=== PATIENT | male | born 1940 | race Caucasian/White ===

== ENCOUNTER 2017-10-22 07:58 | Inpatient (IN) | payer OTHER ==
--- NOTE | 2017-10-21 12:43 | GHP ---
[f rep st] PREOP HISTORY AND PHYSICAL Patient will be an a.m. admission for surgery on Sunday, october 22, 2017. PROBLEM: Left knee degenerative arthritis. HISTORY OF PRESENT ILLNESS: The patient is a 77-year-old man, admitted for a left total knee arthroplasty. He has had progressive pain in his left knee for the last couple of years. The knee is painful with walking. He has had at least one cortisone injection in the knee. He thinks he may have had arthroscopic surgery in his left knee on one occasion. He has tried an truck loader and unloader brace, which did not help. He has failed nonsurgical treatment and is admitted for a left total knee arthroplasty. PAST MEDICAL HISTORY: He is treated for hypertension, elevated cholesterol and depression. He has been told that he has a leaky heart valve. No history of coronary artery disease. There is no history of DVT, hepatitis, MRSA infections , or bleeding problems. He has sleep apnea and uses a CPAP machine. CURRENT MEDICATIONS: Amlodipine 5 mg per day, atorvastatin 40 mg per day, bupropion SR 150 mg tablets once a day. Fluticasone nasal spray p.r.n., hydralazine 50 mg per day, losartan 100 mg per day. Metoprolol ER 200 mg 1 tablet per day. ALLERGIES: Aspirin causes extensive swelling and ecchymosis. Metal allergy: None. Latex allergy: None. SOCIAL HISTORY: The patient is . He is retired. He does not smoke cigarettes or drink alcohol. PHYSICAL EXAMINATION: Height 5 feet 9 inches. Weight 220 pounds. BMI 32.5. EYES: Conjunctivae and sclerae are clear. Pupils are round and reactive. MOUTH: Good oral hygiene. No loose teeth. CHEST: Clear. HEART: Regular rhythm. He has a systolic ejection murmur. EXTREMITIES: Pertinent findings are limited to his left knee. He has full extension of 110 degrees of flexion. Significant varus is present. Mild pseudolaxity of his medial collateral ligament. His ligaments are otherwise stable. He is tender along the medial joint line. IMAGING: His films show advanced medial compartment degenerative arthritis. He is odpd-hy-wqjg in the medial compartment. IMPRESSION ON ADMISSION: 1. Left knee degenerative arthritis with varus deformity. He is prepared for a left total knee arthroplasty. 2. Treatment for hypertension. 3. Treatment for elevated cholesterol. 4. Treatment for depression. 5. History of valvular heart disease. PLAN: He will undergo a left total knee arthroplasty. The surgery has been described to him, including the risks, complications, expectations, and recovery time. I have stressed the importance of postoperative physical therapy. I have advised him that 15% of people do not get a satisfactory result with a total knee replacement. All his questions have been answered, and he consents to surgery. Copy requested to: [facility] /[id number]/MODL MTDD
[~2017-10-22 07:58] MED LIST: POVIDONE-IODINE 20 ML in SODIUM CL IRRIG SOLUTION 500 ML IRR ONE; ROPIVACAINE 0.2% 80 MG, EPINEPHrine 0.2 MG in SYRINGE 0 ML IU ONE; TRANEXAMIC ACID 1,000 MG in NS 100 ML IV ONE; VANCOMYCIN 1 GM VIAL ONE; ceFAZolin 1 GM/5 ML SYR ONE
[2017-10-22] MEDS ORDERED: ACETAMINOPHEN 325 MG TAB PO ONE (08:12)
[2017-10-22] MEDS ORDERED: ceFAZolin 2 GM/SWFI 2 GM/20 ML SYR IVP ONE (08:12)
[2017-10-22] MEDS ORDERED: DEXAMETHASONE 4 MG/ML VIAL IVP ONE (08:12)
[2017-10-22] MEDS ORDERED: ONDANSETRON 4 MG/2 ML VIAL IVP ONE (08:12)
[2017-10-22] MEDS ORDERED: GABAPENTIN 300 MG CAP PO ONE (08:12)
[2017-10-22] MEDS ORDERED: FAMOTIDINE 20 MG TAB PO ONE (08:12)
[2017-10-22] MEDS ORDERED: LR 1,000 ML IV ONE (08:13)
[2017-10-22] MEDS ORDERED: LIDOCAINE 1% 2 ML INJ ID PRN (08:13)
--- NOTE | 2017-10-22 09:12 | PDHPUP ---
History & Physical Update H&P update statement: This history and physical update is based on an assessment of the patient which was completed after admission or registration (within 24 hours), but prior to the surgery/procedure. H&P update: H&P reviewed & patient examined
[2017-10-22] MEDS ORDERED: BUPIVACAINE/DEXTROSE 7.5MG/ML 2 ML SPINAL AMP SP ONE (10:05)
[2017-10-22] MEDS ORDERED: PROPOFOL/EMULSION 500 MG/50 ML BOTTLE IV ONE (10:11)
[2017-10-22] MEDS ORDERED: LIDOCAINE 2% 100 MG/5 ML SYR ONE (10:12)
[2017-10-22] MEDS ORDERED: PROPOFOL 200 MG/20 ML VIAL ONE ×2 (11:03→12:07)
--- NOTE | 2017-10-22 11:57 | POSTOPPROG ---
Post Op Note Date of Operation: 10/22/17 Surgeon: Audi Robin Skidder Operator: Andrea Anesthesiologist: Dr. Abner Lai Anesthesia: IV Sedation, Spinal Post-op Diagnosis: Left knee severe degenerative arthritis Procedure: Left total knee arthroplasty Inf/Abcess present in the surg proc area at time of surgery?: No EBL: 50-100 (Adductor canal block in PACU with indwelling catheter.)
[2017-10-22] MEDS ORDERED: PROMETHAZINE HCL 25 MG SUPPR PR PRN (12:20)
[2017-10-22] MEDS ORDERED: diphenhydrAMINE 25 MG CAP PO PRN (12:20)
[2017-10-22] MEDS ORDERED: POLYETHYLENE GLYCOL 3350 17 GM PKT PO PRN (12:20)
[2017-10-22] MEDS ORDERED: NS 500 ML IV PRN (12:20)
[2017-10-22] MEDS ORDERED: BISACODYL 10 MG SUPP PR PRN (12:20)
[2017-10-22] MEDS ORDERED: MAGNESIUM HYDROXIDE 30 ML UDCUP PO PRN (12:20)
[2017-10-22] MEDS ORDERED: ONDANSETRON DISINTEGRATING 4 MG TAB PO PRN (12:20)
[2017-10-22] MEDS ORDERED: ONDANSETRON 4 MG/2 ML VIAL IVP PRN ×2 (12:20→12:34)
[2017-10-22] MEDS ORDERED: PROMETHAZINE HCL 25 MG/ML INJ IVP PRN (12:20)
[2017-10-22] MEDS ORDERED: LACTULOSE 20 GM/30 ML UDCUP PO PRN (12:20)
[2017-10-22] MEDS ORDERED: DIPHENOXYLATE/ATROPINE LOMOTIL 1 TAB PO PRN (12:20)
[2017-10-22] MEDS ORDERED: LR 1,000 ML IV SCH (12:30)
[2017-10-22] MEDS ORDERED: MEPERIDINE 25 MG/0.5 ML AMP IVP PRN (12:34)
[2017-10-22] MEDS ORDERED: ALBUTEROL 3 ML DEYVIAL IH PRN (12:34)
[2017-10-22] MEDS ORDERED: NALOXONE HCL 0.4 MG/ML INJ IVP PRN ×2 (12:34)
[2017-10-22] MEDS ORDERED: fentaNYL 100 MCG/2 ML INJ ONE (12:35)
[2017-10-22] MEDS: fentaNYL 100 MCG/2 ML INJ IVP PRN ×2 (12:36→12:43)
--- NOTE | 2017-10-22 12:36 | POSTANESTH ---
Post Anesthetic Evaluation Cardiovascular Status: Similar to Pre-Op Cond Respiratory Status: Similar to Pre-op Cond. Level of Consciousness/Mental Status: Mildly Sleepy, Arousable Pain Control: Inadeq, Add Tx Required Nausea/Vomiting Control: Adequate, Prn Tx Ordered Complications Possibly Related to Anesthesia: None Noted
--- NOTE | 2017-10-22 12:49 | GOP ---
[f rep st] OPERATIVE REPORT DATE OF OPERATION: 10/22/2017 SURGEON: Audi Robin MD PUBLIC WEIGHER: MOON Anna CFA. ANESTHESIA: Combination of Marcaine spinal, IV sedation, and adductor canal block. PREOPERATIVE DIAGNOSIS: Left knee degenerative arthritis with varus deformity. POSTOPERATIVE DIAGNOSIS: Left knee degenerative arthritis with varus deformity. PROCEDURE PERFORMED: Left total knee arthroplasty, cemented, Brady and Nephew Journey II, posterior stabilized. FINDINGS: DESCRIPTION OF PROCEDURE: The patient was given 2 g of IV Ancef preoperatively within 60 minutes of surgery. He also received IV tranexamic acid at a dose of a 1000 mg IV. He was placed on the operating room table and given spinal anesthesia with Marcaine by Dr. Lai. He was then placed supine and given IV sedation. A Turner catheter was not used. He wore a JUAN FRANCISCO stocking and SCD on the nonoperative leg. A bolster was placed under his left hip to prevent excessive external rotation of the leg. His left lower extremity was prepped with ChloraPrep from the upper thigh tourniquet to the tips of the toes. It was draped free using sterile sheets, stockinette, and Ioban plastic adhesive drape. The lower leg was wrapped with compressive Coban. The leg was exsanguinated with elevation and a 6-inch compressive wrap, and the pneumatic tourniquet was inflated to 275 mmHg. The World Health Organization time-out was performed to verify the correct patient identity and the correct surgical side and site. The Whick time-out was also performed. The OutboundEngineayo leg holding device was sterilely attached to the operating room table and used throughout the procedure to help position the knee. A straight midline incision was made centered on the patella. Subcutaneous tissues were sharply divided, and hemostasis was obtained using electrocautery. A medial subcutaneous flap was developed, and the capsule and synovium were opened in a medial parapatellar fashion. Extensive degenerative changes were present, particularly in the medial compartment. His medial capsule and periosteum were elevated off the rim of the medial tibial plateau all the way around to the posteromedial corner. His medial collateral ligament was released distally. In order to improve exposure, the patella was prepared first. The original thickness of the patella was measured. Peripheral osteophytes were removed. I cut a flat surface on the back of the patella. It was sized for a 38 mm round resurfacing component. I removed enough bone from the patella such that the remaining bone plus the thickness of the patellar component recreated the original thickness of the patella. The composite thickness was 24 mm. The intramedullary alignment guide system was used to set up the distal femoral cut. The distal femur was cut in 5 degrees of valgus. Because of a slight preoperative flexion contracture, I made a +2 mm cut on the distal femur. The sizing jig was used to determine proper femoral sizing. He was a true size 7. The 5 in 1 cutting block was applied, and the anterior and posterior condylar cuts and chamfer cuts were made. The final jig was used to remove the central portion of the distal femur to accommodate the posterior stabilized femoral component. I was careful to determine proper rotation by referencing off Whitesides line and other bony landmarks. Each cut was checked for accuracy before and after it was made. The femur was sized for a size 7 posterior stabilized component. Next, the tibia was prepared. The proximal tibial cut was made using the extramedullary alignment guide system. The cut was made in a few degrees of posterior slope. I was careful to achieve proper varus/valgus alignment and proper rotation. The posterior compartment was cleared of meniscal remnants. Osteophytes were removed from the back of the femoral condyles. I checked the flexion and extension gaps and felt that the flexion gap was a little tighter than the extension gap. I recut the tibia with more posterior slope. The tibia was sized for a size 7 component. With the trial components in place, I selected a 9 mm polyethylene posterior stabilized tibial insert. The knee came to full extension and flexed to 130 degrees. There was no overstuffing in flexion. I thought his medial collateral ligament was still tight and he had 2- 3 mm of lateral laxity in flexion and extension. I went ahead and used an 11 blade to piecrust his medial collateral ligament. I then inserted a 10 mm poly insert. This gave me a proper medial and lateral balance. The trial patellar button was applied, and tracking was checked. Tracking was excellent without any digital pressure. 40 mL of the joint anesthetic cocktail was injected in the posterior capsule, the periarticular structures, the quadriceps muscle and tendon areas, and the subcutaneous tissues along the skin edges. The surfaces were prepared for cementing. They were carefully cleaned with the pulsating lavage irrigation and thoroughly dried. The CarboJet device was used to blow dry the cancellous surfaces. A double batch of methylmethacrylate cement with 2 g of powdered vancomycin added was mixed. While it was still in a doughy state, all [address] components were cemented in place. Excess cement was removed before it hardened. The 10 mm trial tibial insert was re-tried and was the proper thickness. The actual component was inserted and locked into place. The knee was thoroughly irrigated one final time with a dilute Betadine solution. The tourniquet was deflated and the total tourniquet time was 71 minutes. The vastus medialis portion of the extensor mechanism was repaired with several interrupted lyvqah-ya-ulzha #2 FiberWire sutures. The capsule and synovium were closed first with multiple interrupted ppcqtv-mj-cuhrx 0 PDS sutures, followed by a running #2 barbed Ethicon Stratafix PDO suture. The subcutaneous tissues were closed with a running 0 barbed Ethicon Stratafix Monoderm suture. The skin was closed with a running 3-0 barbed Ethicon Stratafix Monoderm subcuticular suture. The skin was sealed with half-inch Steri-Strips. The wound was covered with a large piece of sterile Mepilex waterproof dressing and a 6-inch compressive wrap. A long-leg JUAN FRANCISCO stocking and SCD were applied, followed by the cooling device. The patient wore a stocking and SCD on the opposite leg during the procedure. The Mediplex sacral dressing was applied. I used a size 7 cemented Brady and Nephew Oxinium posterior stabilized femoral component, size 7 cemented tibial base plate, 10 mm posterior stabilized tibial insert, and a 38 mm cemented round all-polyethylene resurfacing patellar component. The estimated blood loss following deflation of the tourniquet was about 100 cc. The sponge and needle count were correct on 2 occasions. He was awakened from anesthesia, transferred to his hospital [facility], and taken to PACU in satisfactory condition. There were no recognized intraoperative complications. In the PACU, for additional postoperative pain control, Dr. Lai performed an adductor canal block with an indwelling catheter. Damian Chen and Luis Antonio Farah acted as surgical assistants. Their assistance was a medical necessity for safe completion of the procedure. /[id number]/MODL MTDD
[2017-10-22] MEDS: ACETAMINOPHEN 325 MG TAB PO SCH (17:09)
[2017-10-22] MEDS: ceFAZolin 2 GM/DEXTROSE 100 ML IV SCH (17:10)
[2017-10-22] MEDS: TEMAZEPAM 15 MG CAP PO PRN (20:43)
[2017-10-22] MEDS: FAMOTIDINE 20 MG TAB PO SCH (20:43)
[2017-10-22] MEDS: SENNOSIDES/DOCUSATE SODIUM TAB PO SCH (20:43)
[2017-10-22] MEDS: buPROPion SR 150 MG TAB PO SCH (20:44)
[2017-10-22] MEDS: oxyCODONE IR 5 MG TAB PO PRN (21:44)
[2017-10-23] MEDS: ACETAMINOPHEN 325 MG TAB PO SCH ×4 (01:52→17:15)
[2017-10-23] MEDS: ceFAZolin 2 GM/DEXTROSE 100 ML IV SCH (01:53)
[2017-10-23] MEDS: oxyCODONE IR 5 MG TAB PO PRN ×5 (02:42→19:36)
[2017-10-23] MEDS: LOSARTAN POTASSIUM 50 MG TAB PO SCH (08:31)
[2017-10-23] MEDS: amLODIPine BESYLATE 5 MG TAB PO SCH (08:31)
[2017-10-23] MEDS: METOPROLOL SUCCINATE XR 100 MG TAB PO SCH (08:32)
[2017-10-23] MEDS: FERROUS SULFATE 140 MG TAB.ER PO SCH (08:32)
[2017-10-23] MEDS: buPROPion SR 150 MG TAB PO SCH ×2 (08:32→21:46)
[2017-10-23] MEDS: SENNOSIDES/DOCUSATE SODIUM TAB PO SCH ×2 (08:32→21:46)
[2017-10-23] MEDS: FAMOTIDINE 20 MG TAB PO SCH ×2 (08:32→21:46)
[2017-10-23] MEDS: ATORVASTATIN CALCIUM 40 MG TAB PO SCH (08:32)
[2017-10-23] MEDS ORDERED: NON-FORMULARY NEW DRUG (Losartan Potassium [Cozaar] 100 MG) PO SCH (09:00)
--- NOTE | 2017-10-23 09:38 | SOAPPROG ---
SOAP Progress Note Assessment/Plan: Assessment: Afebrile. Moderate pain. Up and walking in aguilar. H/H is good. ACB catheter was removed yesterday because of pain. Films look good. Dsg is dry. Plan: Continue PT. Long alignment film. DC later today. 10/23/17 09:37 Objective: Vital Signs Temp Pulse Resp BP Pulse Ox 36.8 C 83 16 142/87 H 93 10/23/17 08:00 10/23/17 08:32 10/23/17 08:00 10/23/17 08:32 10/23/17 08:00 Laboratory Results 10/23/17 04:47 10/22/17 10/23/17 10/24/17 05:59 05:59 05:59 Intake Total 1315 Output Total 165 250 Balance -340 -250 ICD10 Worksheet Patient Problems: Problems Problem Status Onset Osteoarthritis of left knee Acute
--- NOTE | 2017-10-23 09:41 | PDIAF ---
- Diagnosis Diagnosis: left knee OA Code Status: Full Code - Medication Management Discharge Medications: Medications to Continue on Transfer Atorvastatin Calcium [Lipitor 40 mg (*)] 40 mg PO DAILY 02/27/12 [Last Taken ] Losartan Potassium [Cozaar] 100 mg PO DAILY 02/27/12 [Last Taken 10/22/17] Metoprolol Succinate Xr [Toprol Xl 100 mg (*)] 200 mg PO DAILY 02/27/12 [Last Taken 10/22/17] hydrALAZINE [Apresoline 50 mg (*)] 50 mg PO BID 02/27/12 [Last Taken 10/22/17] Acetamn/Diphenhydramine 500/25 [Tylenol PM (*)] 1 each PO HS 10/16/17 [Last Taken 10/21/17] Calcium Carbonate [Oyster Shell Calcium 500 mg (*)] 500 mg PO DAILY 10/16/17 [ Last Taken 10/15/17] Herbals/Supplements -Info Only 1 ea PO DAILY 10/16/17 [Last Taken 10/15/17] Multivitamins [Multivitamin (*)] 1 each PO DAILY 10/16/17 [Last Taken 10/15/17] amLODIPine BESYLATE [Norvasc 5 mg (*)] 5 mg PO DAILY 10/16/17 [Last Taken ] buPROPion SR [Wellbutrin 150mg SR (*)] 150 mg PO BID 10/16/17 [Last Taken ] Acetaminophen [Tylenol 325mg (*)] 650 mg PO Q6HRS tab 10/23/17 [Last Taken Unknown] Ferrous Sulfate [Slow Fe 140 MG (*)] 140 mg PO DAILY tab.er 10/23/17 [Last Taken Unknown] Ondansetron Odt [Zofran Odt 4 mg (*)] 4 mg PO Q4HRS PRN tab 10/23/17 [Last Taken Unknown] Sennosides/Docusate Sodium [Senokot-S] 1 - 2 tab PO BID tab 10/23/17 [Last Taken Unknown] oxyCODONE IR [Oxycodone Ir (*)] 5 - 10 mg PO Q3HRS PRN tab 10/23/17 [Last Taken Unknown] traMADol [Ultram 50 mg (*)] 50 mg PO Q6HRS PRN tab 10/23/17 [Last Taken Unknown ] Discharge Medications: Refer to the Discharge Home Medication list for PRN reason. - Orders Services needed: Home Care, Physical Therapy Home Care Face to Face: I certify that this patient was under my care and that I had the required bxyh-pu-uotl encounter meeting the encounter requirements on the discharge day. My findings support the fact that the patient is homebound as defined in Home Care Face to Face Continued: CMS Chapter 7 Medicare Benefits Manual 30.1.1 , The condition of the patient is such that there exists a normal inability to leave home and consequently, leaving home would require a considerable and taxing effort. Diet Recommendation: no restrictions on diet Diet Texture: Regular Texture Diet Valentin Stockings Discontinue Date: 1 week Wound Care Instructions: keep clean and dry. You may shower. Activity/Weight Bearing Restrictions: as tolerated. Equipment: Zero knee while in bed as tolerated. - Follow Up Care Current Providers and Referrals: ANA ZUNIGA [Primary Care Provider] - Audi Rboin MD [Medical Doctor] - 11/07/17
--- NOTE | 2017-10-23 10:19 | GDS ---
[f rep st] DISCHARGE SUMMARY ADMISSION DIAGNOSIS: Left knee arthritis with varus deformity. DISCHARGE DIAGNOSIS: Left knee arthritis with varus deformity. OPERATION PERFORMED: 10/27/2017, a left total knee arthroplasty. POSTOPERATIVE COMPLICATIONS: None. CONDITION ON DISCHARGE: Improved. DESCRIPTION OF HOSPITAL COURSE: The patient was admitted to the hospital on the morning of surgery. His admission CBC was normal. The same day, under a combination of Marcaine, spinal, IV sedation, and adductor canal block, he underwent a left total knee arthroplasty. Postoperatively was treated with multimodal DVT prophylaxis including Lovenox. He is allergic to aspirin. On the first postoperative day his hemoglobin and hematocrit were 12.7 and 37.4. He did not require transfused blood. His progress was slow with PT. On the second post op day, he developed lethargy and disorientation. He was seen by internal medicine. Delerums thought due to medications and age. He gradually improved. By discharge he had made satisfactory progress with walking. DISPOSITION: He was discharged to s longterm facility. He will continue Lovenox 40 mg subcu daily for 21 days. I will see him back in the office on November 07, 2017. If there are any problems, he is to call me at the office. /[id number]/MODL MTDD
[2017-10-23] MEDS: ENOXAPARIN 40 MG/0.4 ML SYR SC SCH (11:36)
--- NOTE | 2017-10-23 15:43 | ASMTCMCOM ---
CM Note CM Note Notes: Pt is s/p L TKA, has multiple co-morbidities. Pt agreeable to home health PT per therapy rec, chooses [facility]. Referral and orders sent in Allsdripts. Pt likely d/c tomorrow. Date Signed: 10/23/2017 03:42 PM Electronically Signed By:PHILLIP Gonzalez
[2017-10-23] MEDS: traMADol 50 MG TAB PO PRN (17:14)
[2017-10-24] MEDS: ACETAMINOPHEN 325 MG TAB PO SCH ×4 (00:38→17:00)
[2017-10-24] MEDS: oxyCODONE IR 5 MG TAB PO PRN ×4 (02:27→17:36)
[2017-10-24] MEDS: CYCLOBENZAPRINE 10 MG TAB PO PRN ×2 (04:01→19:08)
--- NOTE | 2017-10-24 07:59 | SOAPPROG ---
SOAP Progress Note Assessment/Plan: Assessment: POD #2, s/p L TKA Awake, alert, afebrile. Pt failed to make adequate and safe progress with PT/OT yesterday. Moderate pain. Dressing clean and dry. Moderate swelling. Ambulating with use of walker. Plan: D/c to home later today as long as pt is cleared by PT/OT. 10/24/17 07:57 Objective: Vital Signs Temp Pulse Resp BP Pulse Ox 36.6 C 75 18 124/91 H 92 10/24/17 04:00 10/24/17 04:00 10/24/17 04:00 10/24/17 04:00 10/24/17 04:00 Laboratory Results 10/24/17 04:54 10/23/17 10/24/17 10/25/17 05:59 05:59 05:59 Intake Total 1315 1000 Output Total 1655 4638 Balance -340 -808 ICD10 Worksheet Patient Problems: Problems Problem Status Onset Osteoarthritis of left knee Acute
[2017-10-24] MEDS: LOSARTAN POTASSIUM 50 MG TAB PO SCH (08:50)
[2017-10-24] MEDS: ATORVASTATIN CALCIUM 40 MG TAB PO SCH (08:51)
[2017-10-24] MEDS: buPROPion SR 150 MG TAB PO SCH ×2 (08:51→20:05)
[2017-10-24] MEDS: amLODIPine BESYLATE 5 MG TAB PO SCH (08:51)
[2017-10-24] MEDS: SENNOSIDES/DOCUSATE SODIUM TAB PO SCH ×2 (08:52→20:05)
[2017-10-24] MEDS: FERROUS SULFATE 140 MG TAB.ER PO SCH (08:52)
[2017-10-24] MEDS: METOPROLOL SUCCINATE XR 100 MG TAB PO SCH (08:53)
[2017-10-24] MEDS: FAMOTIDINE 20 MG TAB PO SCH ×2 (08:54→20:05)
[2017-10-24] MEDS: ENOXAPARIN 40 MG/0.4 ML SYR SC SCH (08:54)
[2017-10-24] MEDS: traMADol 50 MG TAB PO PRN (09:46)
--- NOTE | 2017-10-24 14:51 | PDMN ---
Medical Necessity Medical necessity: change to IP; los>2mn s/p L TKA, failing safety eval per PT/ OT r/t need for bed alarm, max assist for bed mobility and transfers; requires continued PT/OT, unsafe for discharge at this time; comorbid HTN, HLD, SUZANNE/CPAP , increased risk r/t age >75, limited help at home; per order 10/24/17
--- NOTE | 2017-10-24 15:51 | ASMTCMCOM ---
CM Note CM Note Notes: Today PT/OT rec SNF. Spoke with pt and who are agreeable to this recommendation. Referrals sent in Allscripts and pt is accepted at [facility], [facility] [address] and [facility]. At this time pt and did not have a number one choice. CM to follow. Date Signed: 10/24/2017 03:50 PM Electronically Signed By:PHILLIP Gonzalez
[2017-10-25] MEDS: ACETAMINOPHEN 325 MG TAB PO SCH ×5 (00:36→23:10)
[2017-10-25] MEDS: TEMAZEPAM 15 MG CAP PO PRN (00:49)
[2017-10-25] MEDS: FERROUS SULFATE 140 MG TAB.ER PO SCH (10:29)
[2017-10-25] MEDS: buPROPion SR 150 MG TAB PO SCH ×2 (10:29→20:40)
[2017-10-25] MEDS: METOPROLOL SUCCINATE XR 100 MG TAB PO SCH (10:29)
[2017-10-25] MEDS: LOSARTAN POTASSIUM 50 MG TAB PO SCH (10:29)
[2017-10-25] MEDS: SENNOSIDES/DOCUSATE SODIUM TAB PO SCH ×2 (10:31→20:40)
[2017-10-25] MEDS: ATORVASTATIN CALCIUM 40 MG TAB PO SCH (10:31)
[2017-10-25] MEDS: amLODIPine BESYLATE 5 MG TAB PO SCH (10:31)
[2017-10-25] MEDS: FAMOTIDINE 20 MG TAB PO SCH ×2 (10:32→20:40)
[2017-10-25] MEDS: ENOXAPARIN 40 MG/0.4 ML SYR SC SCH (10:32)
--- NOTE | 2017-10-25 12:44 | SOAPPROG ---
SOAP Progress Note Assessment/Plan: Assessment: POD #2, s/p L TKA Awake, alert, afebrile. Pt failed to make adequate and safe progress with PT/OT yesterday. Moderate pain. Dressing clean and dry. Moderate swelling. Ambulating with use of walker. Plan: D/c to home later today as long as pt is cleared by PT/OT. 10/24/17 07:57 Assessment: POD #3, s/p L TKA Awake, alert to person, but not place or time. Afebrile. Moderate pain and swelling. Dressing clean and dry. Denies SOB or CP. Lovenox for DVT prophylaxis. Slow to progress with PT/OT. Unwilling to ambulate or participate in PT. VSS. H/H ok. Electrolyte panel ok. Plan: Hospitalist consult for delirium to r/o cause. Plan to transfer pt to SNF. Eligible for transfer on Saturday per Medicare guidelines. Ortho will continue to follow. 10/25/17 12:40 Objective: Vital Signs Temp Pulse Resp BP Pulse Ox 36.6 C 51 L 16 141/83 H 93 10/25/17 08:00 10/25/17 10:29 10/25/17 08:00 10/25/17 10:31 10/25/17 08:00 Laboratory Results 10/24/17 04:54 10/25/17 10:02 10/24/17 10/25/17 10/26/17 05:59 05:59 05:59 Intake Total 1000 400 Output Total 5137 1666 Yoitxmu -016 -376 ICD10 Worksheet Patient Problems: Problems Problem Status Onset Osteoarthritis of left knee Acute
[2017-10-25] MEDS: KETOROLAC 15 MG/1 ML SDV IVP ONE ×2 (15:01→17:24)
--- NOTE | 2017-10-25 16:20 | ASMTCMCOM ---
CM Note CM Note Notes: Pt and are considering [facility] [place] [facility] and pt has been accepted at both. CM to follow. D/c plan of care: SNF when medically stable. Date Signed: 10/25/2017 04:20 PM Electronically Signed By:PHILLIP Gonzalez
[2017-10-25] MEDS ORDERED: KETOROLAC 15 MG/1 ML SDV IVP ONE (17:15)
--- NOTE | 2017-10-25 19:39 | GCON ---
[f rep st] CONSULTATION HISTORY OF PRESENT ILLNESS: The patient is a pleasant 77-year-old gentleman with a minimal past medi yonathan history, who is postop day 3 from a total knee arthroplasty. I am asked to see him with regard t o increasing confusion. When I speak with this patient's family, they talk about how he has become more confused as time has gone on and attribute it to the doses of oxycodone which he has received. I reviewed his medications and he has received tramadol yesterday, IV morphine yesterday, Flexeril la st night, and oxycodone as well as temazepam. His family denies that he drinks any alcohol. He is n ot having shortness of breath. He does not have cough. He does not have fever, chills. He is not h aving any urinary symptoms. It is not clear that he had a Turner catheter. Review of the orders sugg est he was straight cath'd on the in the PACU, suggests he did not have a catheter. He does not have a history of previous episodes of confusion. He was hospitalized in 2011 with an ep isode of pyelonephritis. I took care of him at that time, he was not confused. REVIEW OF SYSTEMS: Complete 10-point review of systems conducted, negative except as noted in the HP I. PAST MEDICAL HISTORY: Remote cholecystectomy, BPH, hypertension, hyperlipidemia. ALLERGIES: Aspirin. HOME MEDICATIONS: Tylenol PM, calcium carbonate, multivitamin, amlodipine, atorvastatin, bupropion, hydralazine, losartan, metoprolol. SOCIAL HISTORY: He is a retired appliance repairman. Lives in [place]. Does not smoke cigarettes or drink alcohol. FAMILY HISTORY: Daughter at the bedside and healthy. PHYSICAL EXAMINATION: VITAL SIGNS: Temp 36.5, blood pressure 158/85, pulse 92, breathing 18 times a minute, 92% on room air. He has been afebrile on this hospitalization. GENERAL: No acute distress . Alert. HEENT: Sclerae anicteric. Oropharynx clear. Mucous membranes are moist. NECK: Supple without lymphadenopathy or JVD. LUNGS: Clear to auscultation bilaterally. HEART: S1, S2. ABDOMEN : Soft, nontender, nondistended. LOWER EXTREMITIES: Without edema other than his operative leg. N EUROLOGIC: The patient is alert. He is conversant. He thinks he is in a senior care facility [facility]. He knows that it is October of 2017. LABS: Hemoglobin and hematocrit are 12 and 37. Sodium 136, potassium 4.5, chloride 98, bicarb 27, B UN 11, creatinine 0.8, glucose 105, AST is 74, ALT is 119, bilirubin is 1.7. It has been elevated in the past. I have discussed the case with KALI Bryan, of Orthopedic Surgery. ASSESSMENT/PLAN: A 77-year-old gentleman postoperative encephalopathy. 1. Encephalopathy. This is almost certainly due to medication misadventure including temazepam, Fle xeril, oxycodone. a. I have taken the liberty of discontinuing Benadryl, Flexeril, oxycodone, and temazepam. I have w ritten for trazodone for sleep, which is better tolerated in the elderly. I have written for oral mo rphine p.r.n. and given a 1 time dose of 15 mg of Toradol. b. He has clear lungs. I think we can forego a chest x-ray. He does not have any urinary symptoms, so we will hold off on a urinalysis. 2. Abnormal liver function tests. 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 I do not think this is contributing to his cause, but it is worth checking. 3. Prophylaxis. Low molecular heparin. 4. Pain. I have written for oral morphine. One time dose of Toradol. DISPOSITION: Inpatient. Thank you for this consultation. Hospital Medicine will follow. /[id number]/MODL
[2017-10-26] MEDS: traMADol 50 MG TAB PO PRN ×2 (00:43→15:51)
[2017-10-26] MEDS: ACETAMINOPHEN 325 MG TAB PO SCH ×4 (05:28→23:17)
--- NOTE | 2017-10-26 07:59 | SOAPPROG ---
SOAP Progress Note Assessment/Plan: Assessment: POD #2, s/p L TKA Awake, alert, afebrile. Pt failed to make adequate and safe progress with PT/OT yesterday. Moderate pain. Dressing clean and dry. Moderate swelling. Ambulating with use of walker. Plan: D/c to home later today as long as pt is cleared by PT/OT. 10/24/17 07:57 Assessment: POD #3, s/p L TKA Awake, alert to person, but not place or time. Afebrile. Moderate pain and swelling. Dressing clean and dry. Denies SOB or CP. Lovenox for DVT prophylaxis. Slow to progress with PT/OT. Unwilling to ambulate or participate in PT. VSS. H/H ok. Electrolyte panel ok. Plan: Hospitalist consult for delirium to r/o cause. Plan to transfer pt to SNF. Eligible for transfer on Saturday per Medicare guidelines. Ortho will continue to follow. 10/25/17 12:40 Assessment: POD #4 A and O x 2 Afebrile. VSS. Took a few steps in room with pt yesterday Dressing clean and dry. Moderate swelling of the knee. Appreciate hospitalist consult. Plan: Cont PT/OT. Awaiting snf placement per medicare guidelines. D/c to snf when available. 10/26/17 07:57 Objective: Vital Signs Temp Pulse Resp BP Pulse Ox 36.9 C 80 16 118/66 92 10/26/17 07:36 10/26/17 07:36 10/26/17 07:36 10/26/17 07:36 10/26/17 07:36 Laboratory Results 10/24/17 04:54 10/25/17 10:02 10/25/17 10/26/17 10/27/17 05:59 05:59 05:59 Intake Total 400 250 Output Total 1125 550 200 Balance -725 -300 -200 ICD10 Worksheet Patient Problems: Problems Problem Status Onset Osteoarthritis of left knee Acute
[2017-10-26] MEDS: amLODIPine BESYLATE 5 MG TAB PO SCH (08:57)
[2017-10-26] MEDS: ATORVASTATIN CALCIUM 40 MG TAB PO SCH (08:59)
[2017-10-26] MEDS: LOSARTAN POTASSIUM 50 MG TAB PO SCH (09:00)
[2017-10-26] MEDS: FERROUS SULFATE 140 MG TAB.ER PO SCH (09:00)
[2017-10-26] MEDS: FAMOTIDINE 20 MG TAB PO SCH ×2 (09:00→20:44)
[2017-10-26] MEDS: METOPROLOL SUCCINATE XR 100 MG TAB PO SCH (09:01)
[2017-10-26] MEDS: SENNOSIDES/DOCUSATE SODIUM TAB PO SCH ×2 (09:02→20:44)
[2017-10-26] MEDS: buPROPion SR 150 MG TAB PO SCH ×2 (09:02→20:44)
[2017-10-26] MEDS: ENOXAPARIN 40 MG/0.4 ML SYR SC SCH (09:08)
--- NOTE | 2017-10-26 10:50 | ASMTCMCOM ---
CM Note CM Note Notes: CM met with patient and family, they state understanding will likely discharge tomorrow. Family did not have preference for facility and was asking for recommendation, CM recommended facility that is more convenient for them, which they state is [facility]. CM to follow. D/C plan: waiting for 3rd midnight, D/C 10/27 to [facility] or [facility] -waiting family decision on location. Date Signed: 10/26/2017 10:49 AM Electronically Signed By:Juana Nelson
--- NOTE | 2017-10-26 12:54 | HOSPPROG ---
Hospitalist Progress Note Assessment/Plan: 77 yo M w postop confusion encephalopathy: 2/2 meds, likely flexeril and restoril resolved will sign off Subjective: not confused Objective: Vital Signs Temp Pulse Resp BP Pulse Ox 36.9 C 80 16 118/66 92 10/26/17 07:36 10/26/17 07:36 10/26/17 07:36 10/26/17 07:36 10/26/17 07:36 Laboratory Results 10/24/17 04:54 10/25/17 10:02 10/25/17 10/26/17 10/27/17 05:59 05:59 05:59 Intake Total 400 250 Output Total 1125 550 200 Balance -725 -300 -200 - Physical Exam Constitutional: no apparent distress, appears nourished Eyes: PERRL, anicteric sclera Ears, Nose, Mouth, Throat: moist mucous membranes, hearing normal Cardiovascular: regular rate and rhythym, no murmur, rub, or gallop Respiratory: no respiratory distress, no rales or rhonchi Gastrointestinal: normoactive bowel sounds, soft, non-tender abdomen Genitourinary: no bladder fullness, No dudley in urethra Skin: warm, normal color Musculoskeletal: full muscle strength, no muscle tenderness, normal joint ROM Neurologic: AAOx3, sensation intact bilaterally ICD10 Worksheet Patient Problems: Problems Problem Status Onset Osteoarthritis of left knee Acute
[2017-10-27] MEDS: traMADol 50 MG TAB PO PRN ×2 (00:23→09:22)
[2017-10-27] MEDS: ACETAMINOPHEN 325 MG TAB PO SCH ×2 (06:03→12:53)
[2017-10-27 08:07] VITALS: BP 122/81
[2017-10-27] MEDS: buPROPion SR 150 MG TAB PO SCH (09:22)
[2017-10-27] MEDS: FAMOTIDINE 20 MG TAB PO SCH (09:23)
[2017-10-27] MEDS: SENNOSIDES/DOCUSATE SODIUM TAB PO SCH (09:23)
[2017-10-27] MEDS: METOPROLOL SUCCINATE XR 100 MG TAB PO SCH (09:23)
[2017-10-27] MEDS: amLODIPine BESYLATE 5 MG TAB PO SCH (09:26)
[2017-10-27] MEDS: ATORVASTATIN CALCIUM 40 MG TAB PO SCH (09:26)
[2017-10-27] MEDS: LOSARTAN POTASSIUM 50 MG TAB PO SCH (09:26)
[2017-10-27] MEDS: FERROUS SULFATE 140 MG TAB.ER PO SCH (09:27)
[2017-10-27] MEDS: ENOXAPARIN 40 MG/0.4 ML SYR SC SCH (09:27)
--- NOTE | 2017-10-27 13:27 | HOSPPROG ---
Hospitalist Progress Note Assessment/Plan: 77 yo M w postop confusion encephalopathy: 2/2 meds, likely flexeril and restoril resolved echhymosis: likely 2/2 operative manipulation/bleeding not suggestive of cellulitis Subjective: asked to see patient by nursing given redness on L upper thigh. remains not confused Objective: Vital Signs Temp Pulse Resp BP Pulse Ox 37.1 C 83 16 122/81 H 94 10/27/17 08:00 10/27/17 08:00 10/27/17 08:00 10/27/17 08:00 10/27/17 08:00 Laboratory Results 10/24/17 04:54 10/25/17 10:02 10/26/17 10/27/17 10/28/17 05:59 05:59 05:59 Intake Total 250 1080 360 Output Total 550 1725 200 Balance -300 -645 160 - Physical Exam Constitutional: no apparent distress, appears nourished Eyes: PERRL, anicteric sclera Ears, Nose, Mouth, Throat: moist mucous membranes, hearing normal Cardiovascular: regular rate and rhythym, no murmur, rub, or gallop Respiratory: no respiratory distress, no rales or rhonchi Gastrointestinal: normoactive bowel sounds, soft, non-tender abdomen Genitourinary: No dudley in urethra Musculoskeletal: other (L upper thigh w ecchymosis. soft) Neurologic: AAOx3, sensation intact bilaterally ICD10 Worksheet Patient Problems: Problems Problem Status Onset Osteoarthritis of left knee Acute
--- NOTE | 2017-10-27 14:56 | SOAPPROG ---
SOAP Progress Note Assessment/Plan: Assessment: POD #2, s/p L TKA Awake, alert, afebrile. Pt failed to make adequate and safe progress with PT/OT yesterday. Moderate pain. Dressing clean and dry. Moderate swelling. Ambulating with use of walker. Plan: D/c to home later today as long as pt is cleared by PT/OT. 10/24/17 07:57 Assessment: POD #3, s/p L TKA Awake, alert to person, but not place or time. Afebrile. Moderate pain and swelling. Dressing clean and dry. Denies SOB or CP. Lovenox for DVT prophylaxis. Slow to progress with PT/OT. Unwilling to ambulate or participate in PT. VSS. H/H ok. Electrolyte panel ok. Plan: Hospitalist consult for delirium to r/o cause. Plan to transfer pt to SNF. Eligible for transfer on Saturday per Medicare guidelines. Ortho will continue to follow. 10/25/17 12:40 Assessment: POD #4 A and O x 2 Afebrile. VSS. Took a few steps in room with pt yesterday Dressing clean and dry. Moderate swelling of the knee. Appreciate hospitalist consult. Plan: Cont PT/OT. Awaiting snf placement per medicare guidelines. D/c to snf when available. 10/26/17 07:57 Assessment: Confusion resolved. VSS. Ecchymosis secondary to lovenox and surgery Slow progress w/ PT Eligible for SNF today. Plan: D/c to SNF today. F/u in office as scheduled. 10/27/17 14:50 Objective: Vital Signs Temp Pulse Resp BP Pulse Ox 37.1 C 83 16 122/81 H 94 10/27/17 08:00 10/27/17 08:00 10/27/17 08:00 10/27/17 08:00 10/27/17 08:00 Laboratory Results 10/24/17 04:54 10/25/17 10:02 10/26/17 10/27/17 10/28/17 05:59 05:59 05:59 Intake Total 250 1080 360 Output Total 761 1635 300 Balance -300 -645 60 ICD10 Worksheet Patient Problems: Problems Problem Status Onset Osteoarthritis of left knee Acute
--- NOTE | 2017-10-27 15:00 | PDIAF ---
- Diagnosis Diagnosis: left knee OA Code Status: Full Code - Medication Management Discharge Medications: Medications to Continue on Transfer Atorvastatin Calcium [Lipitor 40 mg (*)] 40 mg PO DAILY 02/27/12 [Last Taken ] Losartan Potassium [Cozaar] 100 mg PO DAILY 02/27/12 [Last Taken 10/22/17] Metoprolol Succinate Xr [Toprol Xl 100 mg (*)] 200 mg PO DAILY 02/27/12 [Last Taken 10/22/17] hydrALAZINE [Apresoline 50 mg (*)] 50 mg PO BID 02/27/12 [Last Taken 10/22/17] Acetamn/Diphenhydramine 500/25 [Tylenol PM (*)] 1 each PO HS 10/16/17 [Last Taken 10/21/17] Calcium Carbonate [Oyster Shell Calcium 500 mg (*)] 500 mg PO DAILY 10/16/17 [ Last Taken 10/15/17] Herbals/Supplements -Info Only 1 ea PO DAILY 10/16/17 [Last Taken 10/15/17] Multivitamins [Multivitamin (*)] 1 each PO DAILY 10/16/17 [Last Taken 10/15/17] amLODIPine BESYLATE [Norvasc 5 mg (*)] 5 mg PO DAILY 10/16/17 [Last Taken ] buPROPion SR [Wellbutrin 150mg SR (*)] 150 mg PO BID 10/16/17 [Last Taken ] Acetaminophen [Tylenol 325mg (*)] 650 mg PO Q6HRS tab 10/23/17 [Last Taken Unknown] Enoxaparin [Lovenox 40 MG (*)] 40 mg SC DAILY syr 10/23/17 [Last Taken Unknown] Ferrous Sulfate [Slow Fe 140 MG (*)] 140 mg PO DAILY tab.er 10/23/17 [Last Taken Unknown] Ondansetron Odt [Zofran Odt 4 mg (*)] 4 mg PO Q4HRS PRN tab 10/23/17 [Last Taken Unknown] Sennosides/Docusate Sodium [Senokot-S] 1 - 2 tab PO BID tab 10/23/17 [Last Taken Unknown] morphINE IR [morphINE IR 15 mg (*)] 15 mg PO Q4HRS PRN tab 10/27/17 [Last Taken Unknown] Discharge Medications: Refer to the Discharge Home Medication list for PRN reason. - Orders Services needed: Physical Therapy, Occupational Therapy Diet Recommendation: no restrictions on diet Diet Texture: Regular Texture Diet Valentin Stockings Discontinue Date: 1 week Wound Care Instructions: keep clean and dry. You may shower. Activity/Weight Bearing Restrictions: as tolerated. Equipment: Zero knee while in bed as tolerated. - Follow Up Care Current Providers and Referrals: Audi Robin MD [Medical Doctor] - 11/07/17 ANA ZUNIGA [Primary Care Provider] -
--- NOTE | 2017-10-28 09:31 | ASDISCHSUM ---
Discharge Information Plan Status:SNF Medically Cleared to Leave: Discharge Date:10/27/2017 05:38 PM D/C Disposition:Detention Facility ADT D/C Disposition:Detention Facility Projected Discharge Date:10/27/2017 11:00 AM Transportation at D/C: Discharge Delay Reason: Follow-Up Date:10/27/2017 11:00 AM Discharge Slot: Final Diagnosis: Placement Information Referral Type:*Home Health Care Services Referral ID:[id number] Provider Name: Address 1: Phone Number: Address 2: Fax Number: City: Selection Factors: State: Referral Type:*[place]/SNF Referral ID:[id number] Provider Name:Jerry Mohr Address 1:[address] Address 2: City:[place] Selection Factors: State:[place] Patient Contact Information Contact Name:FRANCESCO Relationship: Address:[address] Work Phone: City:[place] Alternate Phone: [facility]/Zip Code:[place] [address] Email: Financial Information Financial Class:Medicare Primary Plan Desc:MEDICARE INPATIENT Primary Plan Number:[id number] Secondary Plan Desc:DEBRA LESTER ALBA Secondary Plan Number:[id number] Assessment Information [facility] CM Progress Note CM Note CM Note Notes: Pt is s/p L TKA, has multiple co-morbidities. Pt agreeable to home health PT per therapy rec, chooses [facility]. Referral and orders sent in [employer]. Pt likely d/c tomorrow. Date Signed: 10/23/2017 03:42 PM Electronically Signed By:PHILLIP Gonzalez BC CM Progress Note CM Note CM Note Notes: Today PT/OT rec SNF. Spoke with pt and who are agreeable to this recommendation. Referrals sent in Allscripts and pt is accepted at [facility], [facility], [facility] and [facility] SNFs. At this time pt and did not have a number one choice. CM to follow. Date Signed: 10/24/2017 03:50 PM Electronically Signed By:PHILLIP Gonzalez [facility] Progress Note CM Note CM Note Notes: Pt and are considering [facility] and [facility] SNFs and pt has been accepted at both. CM to follow. D/c plan of care: SNF when medically stable. Date Signed: 10/25/2017 04:20 PM Electronically Signed By:PHILLIP Gonzalez [facility] JAVIER Progress Note CM Note CM Note Notes: CM met with patient and family, they state understanding will likely discharge tomorrow. Family did not have preference for facility and was asking for recommendation, CM recommended facility that is more convenient for them, which they state is [facility]. CM to follow. D/C plan: waiting for 3rd midnight, D/C 10/27 to [facility] or [facility] -waiting family decision on location. Date Signed: 10/26/2017 10:49 AM Electronically Signed By:Juana Nelson Case Management Discharge Plan Note Case Management Discharge Discharge Order Complete? Answers: Yes Patient to Obtain Answers: Other Notes: SNF Medications Transportation Arranged Answers: Other Notes: [facility] Transport will Pick (Date 10/27/2017 06:00 PM & Time) Faxed Final Orders Answers: Yes Family Notified Answers: Yes Discharge Comments Notes: Patient discharged to [facility] [address] [facility]. They arranged transport. AKUA Jesus to call report. Date Signed: 10/27/2017 03:56 PM Electronically Signed By:Delfina Gordon RN Intervention Information Intervention Type:*OC-Signed Date of Service:10/23/2017 09:32 AM Patient Type:Observation Staff Member:Bela Hough Hours: Discipline: Severity: Comment:
--- NOTE | 2017-10-29 15:09 | GDS ---
[f rep st] DISCHARGE SUMMARY ADDENDUM: Due to confusion and acute delirium, the patient required extended hospitalization. He wa s evaluated by a hospitalist, who determined that his confusion and delirium were related to postoper ative medications. After discontinuing his Flexeril and temazepam, the patient became alert and orie nted x3. He still made slow progress with physical therapy, which required him to need skilled [facility] services. He was discharged on 10/28/2017. By the time of discharge, he was afebrile, p artially weightbearing with the use of his walker, and a healing incision. The patient's confusion w as also resolved. /[id number]/MODL
--- NOTE | 2017-10-30 16:03 | PQFORM ---
PHYSICIAN QUERY FORM Needs Your Response This query form is being sent to you to assure this patient record is coded properly. Please respond to the question below: SALES REPRESENTATIVE FACILITY SERVICES QUESTION: Dear ZECHARIAH Chen, In review this patients medical record it is noted patient had the diagnosis of 'encephalopathy.' Noted in the SOAP notes dated 10/25-10/26 patient was diagnosed with 'delirium.' Noted in the Hospitalist progress notes dated 10/26- patient was diagnosed with 'post-op confusion' and 'encephalopathy due to medication.' In Dr. Carrera's 10/25 consultation noted patient was noted to have 'increasing confusion,' and later diagnosed with 'encephalopathy due to medication misadventure.' In your 10/29 discharge summary it was noted patient had the diagnosis of 'acute delirium requiring extended hospitalization.' After study, should the diagnosis of 'drug induced encephalopathy, not present on admission' be included in the discharge summary? ____ Yes No Unable to determine Other more appropriate diagnosis (please specify) Thank you GAGE Quintanilla HIM/Coding Dept. [phone] INSTRUCTIONS FOR RESPONSE: Answer question by clicking on the "Edit Document" button. Move cursor to area below the stars. When complete, hit "Save." Click on the "Sign" button, then click "Sign" again. Type in your PIN and hit "Enter." No MTDD
== END 2017-10-27 17:38 | DRG 470 ==
LOC: F3N 07:58 → OBSVTOIN 07:58 → F3N 14:39
PROVIDERS: ADMIT Orthopaedic Surgery; ATTEND Orthopaedic Surgery
PROC: 0SRD0J9 Replacement of Left Knee Joint with Synthetic Substitute, Cemented, Open Approach (ICD-10-PCS; principal; 2017-10-22 09:30)
DX: M17.12 Unilateral primary osteoarthritis, left knee (principal); R41.0 Disorientation, unspecified; M21.162 Varus deformity, not elsewhere classified, left knee; T48.1X5A Adverse effect of skeletal muscle relaxants [neuromuscular blocking agents], initial encounter; T42.4X5A Adverse effect of benzodiazepines, initial encounter; I10 Essential (primary) hypertension; E78.00 Pure hypercholesterolemia, unspecified; F32.9 Major depressive disorder, single episode, unspecified; G47.30 Sleep apnea, unspecified
CPT/HCPCS: 97110-GP; 97116-GP; 97161-GP; 97165-GO; 97530-GO; 97530-GP; 97535-GO; C1713; G8978-GP-CJ; G8979-GP-CI; G8987-GO-CJ; G8988-GO-CI; J0171; J0690; J1100; J1650; J1885; J2001; J2270; J2405; J2704; J2795; J3010; J3370

== ENCOUNTER → 2017-11-08 | Outpatient (CLI) | payer OTHER | LOC: FIMAGING 14:10 | PROVIDERS: ATTEND Family Medicine | DX: M79.89 Other specified soft tissue disorders (principal); Z96.652 Presence of left artificial knee joint ==